=== PATIENT | male | born 1950 | race Caucasian/White ===

== ENCOUNTER 2016-11-18 14:21 | Emergency (ER) | payer MEDICARE ==
--- NOTE | 2016-11-18 16:33 | MRI REPORT ---
HISTORY: Dizziness, evaluate for infarction, right-sided weakness. COMPARISON: None. TECHNIQUE: Multiplanar multi sequential imaging of the brain obtained without IV gadolinium. FINDINGS: There is age appropriate atrophy. There is increased T2 and FLAIR signal in the periventricular white matter, consistent with chronic small vessel ischemic change. There are 2 punctate areas of diminis hed signal on susceptibility and very images in the frontal subcortical white matter on image 20 of s eries 7, one on the right, and one on the left, without associated T2 and FLAIR signal abnormality, c onsistent with chronic hemorrhage, there is no evidence of acute hemorrhage. There is no hydrocephal us. There is no mass lesion. No midline shift is identified. There are subcentimeter areas of ence phalomalacia identified in the right head of the caudate nucleus consistent with remote lacunar type infarctions. No gross bone lesion is identified. The paranasal sinuses are clear. IMPRESSION: Age-appropriate atrophy and chronic small vessel ischemic change. No acute intracranial abnormality, there is no evidence of acute infarction. There are punctate foci of chronic hemorrhage noted in the frontal region bilaterally, question histo ry of hypertension or coagulopathy. Early amyloid angiopathy may have a similar appearance, clinical correlation is advised. There are subcentimeter chronic lacunar type infarctions of the right head of the caudate nucleus. Final Electronic Signature: This report was electronically signed by Carmelo Garcia MD, FACR on 2016 4:31 PM. ramonita /
[2016-11-18 16:39] LABS: BASOPHILS 0.7 % (0.0-2.0); EOSINOPHILS 6.2 % (0.0-6.0); EOSINOPHILS# 0.3 X 10^3uL (0.0-0.4); HEMATOCRIT 45.4 % (42.0-54.0); HEMOGLOBIN 15.9 g/dL (14.0-18.0); LYMPHOCYTES 20.6 % (20.0-40.0); LYMPHOCYTES# 1.1 X 10^3uL (0.8-3.8); MEAN CELL VOLUME 87.2 fL (80.0-100.0); MEAN CORPUSCULAR HEMOGLOBIN 30.5 pg (29.0-35.0); MEAN PLATELET VOLUME 8.8 fL (7.4-10.4); MONOCYTES 8.9 % (2.0-10.0); MONOCYTES# 0.5 X 10^3uL (0.2-1.0); NEUTROPHILS 63.6 % (54.0-75.0); NEUTROPHILS# 3.6 X 10^3uL (2.6-6.7); RED BLOOD COUNT 5.21 X 10^6uL (4.20-6.10); RED CELL DISTRIBUTION WIDTH 12.4 % (11.5-14.5); WHITE BLOOD COUNT 5.5 X 10^3uL (3.9-10.7)
[2016-11-18 16:43] LABS: INR 2.3
[2016-11-18 17:03] LABS: A/G RATIO 1.7; ALBUMIN 4.5 g/dL (3.5-5.0); BILIRUBIN, TOTAL 1.1 mg/dL (0.2-1.3); CALCIUM 9.4 mg/dL (8.4-10.2); CREATININE 1.3 mg/dL (0.7-1.3); POTASSIUM 4.5 mmol/L (3.5-5.1); TOTAL PROTEIN 7.2 g/dL (6.3-8.2)
--- NOTE | 2016-11-18 17:29 | ER NURSING DOCUMENTATION ---
Nurse's Notes [facility] Name:Velasquez Tejeda Age:66 yrs Sex:Male :1950 Arrival Date:11/18/2016 Time:14:21 Bed5 Private MD:Steven Rubio Diagnosis:Dizziness - Vertigo Presentation: 11/18 14:23 Acuity: ALLEN 2 tg 15:19 Presenting complaint: Patient states: Reports light headed feeling while working. lp Transition of care: Home. 15:19 Method Of Arrival: Private Vehicle lp Triage Assessment: 15:47 General: Appears in no apparent distress, Behavior is appropriate for age. Pain: Denies lp pain. Neuro: Level of Consciousness is awake, alert, Oriented to person, place, time, event, Renewal Specialist are equal bilaterally Moves all extremities. Gait is steady, Speech is normal. Cardiovascular: Capillary refill < 3 seconds. Respiratory: Airway is patent Trachea midline Respiratory effort is even, unlabored, Respiratory pattern is regular, symmetrical. GI: Abdomen is flat, non- distended. : No deficits noted. Derm: No deficits noted. Musculoskeletal: No deficits noted. Historical: - Allergies: Morphine; PENICILLINS; Betadine; - Home Meds: 1. Coumadin 5 mg oral tab 5 mg then 7.5 mg alternating days 2. aspirin 81 mg oral tab 1 tab once daily 3. lisinopril 10 mg oral tab 1 tab once daily - PMHx: solitary kidney; - Tetanus: < 10 years. - Ebola Screening: : Patient negative for fever greater than or equal to 101.5 degrees Fahrenheit, and additional compatible Ebola Virus Disease symptoms. Patient denies exposure to infectious person. Patient denies travel to an Ebola-affected area in the 21 days before illness onset. . - Immunization history: Pneumococcal vaccine is up to date, Flu Vaccine None. - Social history: Smoking status: Patient states was never smoker of tobacco. Screenin:51 Infectious Disease Risk None. Abuse screen: Denies threats or abuse. Denies injuries lp from another. Nutritional screening: No deficits noted. Assessment: 15:50 See Triage Assessment done by same RN. lp Vital Signs: 14:15 BP 131 / 70; Pulse 81; Resp 18; Pulse Ox 92% on R/A; Weight 95.25 kg; Height 6 ft. 0 lp in. (182.88 cm); Pain 0/10; 17:27 BP 138 / 72; Pulse 71; Resp 16; Pulse Ox 93% on R/A; Pain 0/10; tg 14:15 Body Mass Index 28.48 (95.25 kg, 182.88 cm) lp ED Course: 14:21 Patient arrived in ED. ds 14:22 Steven Rubio is Private Physician. ds 14:23 Triage completed. tg 14:31 Kourtney Gomes, RN is Primary Nurse. lp 14:[address] Negron notified. lp 15:04 Jim Negron MD is Attending Physician. tl1 15:45 Patient moved to [facility]. tt 15:51 Valuables Remains with patient Patient has correct armband on for positive lp identification. Placed in gown. Bed in low position. Call light in reach. 16:39 Patient moved back from [facility]. ms 16:45 Steven Rubio is Referral Physician. tl1 Administered Medications: 16:00 Drug: NS 0.9% 1000 ml; Route: IV; Rate: bolus; Site: left hand; lp 16:54 Follow up: IV Status: Completed infusion; IV Intake: 1000ml lp Intake: 16:54 IV: 1000ml; Total: 1000ml. lp Outcome: 16:45 Discharge ordered by . tl1 17:27 Discharged to home ambulatory, with family. tg 17:27 Condition: improved 17:27 Discharge Assessment: Patient awake and alert. 17:27 Instructed on discharge instructions, follow up and referral plans. 17:27 IV D/Daquan 17:28 Patient left the ED. tg 0602 09:59 Discharge F/U Call: Unable to reach: left message with person person taking message: st was told that the pt could give us a call if he had any questions or concerns. Signatures: Ismael Bennett RN RN Brook Van RN RN Kourtney Gomes RN RN lp Srot, Karen, Reg Reg ds Eileen Barahona ms, Tracy tt Jim Negron MD MD tl1
--- NOTE | 2016-11-18 17:29 | ER PHYSICIAN DOCUMENTATION ---
Physician Documentation [facility] Name:Velasquez Tejeda Age:66 yrs Sex:Male :1950 Arrival Date:11/18/2016 Time:14:21 Bed5 Private MD:Steven Rubio ED, Tom Disposition: 11/19 11:38 Chart complete. tl1 Disposition: 11/18/16 16:45 Discharged to Home/Self Care. Impression: Dizziness - Vertigo. - Condition is Good. - Discharge Instructions: DIZZINESS, Unk Cause. - Medical Reconciliation form form. - Follow up: Steven Rubio; When: 4- 6 days; Reason: Recheck today's complaints, Continuance of care. - Problem is new. - Symptoms have improved. HPI: 11/18 14:30 This 66 yrs old Male presents to ER via Private Vehicle with complaints of tl1 Dizziness. 14:30 The patient presents with feeling off balance. Onset: The symptom(s)/episode tl1 began/occurred gradually, this morning. Yesterday, he was working up on a hot roof and was sweating heavily. He was fine last night and felt OK this morning initially, but after getting up he noted that he kept listing forward and to the right and had some mild difficulty walking. This was a little worse standing. He denied any spinning sensation, visual changes, speech problems. No tinnitus or acute decrease in his hearing. He feels thirsty and somewhat dehydrated. Denies vomiting , diarrhea, rectal bleeding. No h/o CVA. 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 Historical: - Allergies: Morphine; PENICILLINS; Betadine; - Home Meds: 1. Coumadin 5 mg oral tab 5 mg then 7.5 mg alternating days 2. aspirin 81 mg oral tab 1 tab once daily 3. lisinopril 10 mg oral tab 1 tab once daily - PMHx: solitary kidney; - Tetanus: < 10 years. - Ebola Screening: : Patient negative for fever greater than or equal to 101.5 degrees Fahrenheit, and additional compatible Ebola Virus Disease symptoms. Patient denies exposure to infectious person. Patient denies travel to an Ebola-affected area in the 21 days before illness onset. . - Immunization history: Pneumococcal vaccine is up to date, Flu Vaccine None. - Social history: Smoking status: Patient states was never smoker of tobacco. ROS: 16:00 Neuro: Positive for dizziness, gait disturbance, Negative for headache, hearing loss, tl1 speech changes, near syncope, tinnitus, visual changes, weakness. 16:00 All other systems are negative. Exam: 16:00 Constitutional: This is a well developed, well nourished patient who is awake, alert, tl1 and in no acute distress. Head/Face: Normocephalic, atraumatic. Eyes: Pupils equal round and reactive to light, extra-ocular motions intact. Lids and lashes normal. Conjunctiva and sclera are non-icteric and not injected. Cornea within normal limits. Periorbital areas with no swelling, redness, or edema. ENT: Nares patent. No nasal discharge, no septal abnormalities noted. Tympanic membranes are normal and external auditory canals are clear. Oropharynx with no redness, swelling, or masses, exudates, or evidence of obstruction, uvula midline. Mucous membranes moist. Neck: Trachea midline, no thyromegaly or masses palpated, and no cervical lymphadenopathy. Supple, full range of motion without nuchal rigidity, or vertebral point tenderness. No Meningismus. Chest/axilla: Normal chest wall appearance and motion. Nontender with no deformity. No lesions are appreciated. Cardiovascular: Regular rate and rhythm with a normal S1 and S2. No gallops, murmurs, or rubs. Normal PMI, no JVD. No pulse deficits. Respiratory: Lungs have equal breath sounds bilaterally, clear to auscultation and percussion. No rales, rhonchi or wheezes noted. No increased work of breathing, no retractions or nasal flaring. Abdomen/GI: Soft, non-tender, with normal bowel sounds. No distension or tympany. No guarding or rebound. No evidence of tenderness throughout. Skin: Warm, dry with normal turgor. Normal color with no rashes, no lesions, and no evidence of cellulitis. 16:00 MS/ Extremity: Pulses equal, no cyanosis. Neurovascular intact. Full, normal range tl1 of motion. 16:00 Neuro: Orientation: is normal, Mentation: is normal, Memory: is normal, Cranial nerves: is grossly normal based on the patient's age, Cerebellar function: normal finger to nose testing, Motor: moves all fours, strength is 5/5 in all extremities, Sensation: light touch sense is normal, Gait: is steady, at a normal pace, appropriate for age, Deep tendon reflexes are 2+ (normal) in the bilateral brachioradialis, bicep, tricep and patellar and Achilles tendons. Vital Signs: 14:15 BP 131 / 70; Pulse 81; Resp 18; Pulse Ox 92% on R/A; Weight 95.25 kg; Height 6 ft. 0 lp in. (182.88 cm); Pain 0/10; 17:27 BP 138 / 72; Pulse 71; Resp 16; Pulse Ox 93% on R/A; Pain 0/10; tg 14:15 Body Mass Index 28.48 (95.25 kg, 182.88 cm) lp MDM: 14:44 Patient medically screened. tl1 16:52 ECG:. tl1 17:00 Differential diagnosis: CVA, generalized weakness, GI bleed, hypovolemia, TIA, vertigo. tl1 Data reviewed: vital signs, nurses notes, lab test result(s), CBC, electrolytes, hepatic panel, radiologic studies, MRI. Data reviewed: vital signs, nurses notes, and as a result, I will discharge patient. Data interpreted: ekg monitor: Pulse oximetry:. Test interpretation: by ED physician or midlevel provider: plain radiologic studies. Counseling: I had a detailed discussion with the patient and/or guardian regarding: the historical points, exam findings, and any diagnostic results supporting the discharge/admit diagnosis, lab results, radiology results, the need for outpatient follow up, for a recheck, to return to the emergency department if symptoms worsen or persist or if there are any questions or concerns that arise at home. Special discussion: I told him that it is not really clear what is causing his symptoms. At least part of it is probably due to dehydration as his BUN/Cr ratio was a little on the high side and he felt much better after a 1 liter bolus of NS. His symptoms, though of feeling like he is being pulled, or listing, to the right is not really classic for orthostatic dehydration or any kind of cardiac dysrrhythmia. I am a little concerned for some type of vertigo, but with a normal or at least non-diagnostic MRI, this is probably more likely to be peripheral. I told him if his symptoms resolve and do not recur, this is probably something minor. If the symptoms do recur, he should probably see an otoneurologist.. 11/18 16:40 Order name: CBC AUTO DIF, MDIF/RMOR IF IND; Complete Time: 11:13 EDMS 11/18 16:47 Interpretation: Normal: WHITE BLOOD COUNT 5.5; HEMOGLOBIN 15.9; HEMATOCRIT 45.4; tl1 PLATELET COUNT 154. 11/18 16:47 Order name: PROTIME/INR; Complete Time: 11:13 EDMS 11/19 11:12 Interpretation: Abnormal: PROTIME 28.4; INR 2.3; THERAPEUTIC. tl1 11/18 17:04 Order name: COMPREHENSIVE METABOLIC PANEL; Complete Time: 11:13 EDMS 11/19 11:12 Interpretation: SODIUM 137; POTASSIUM 4.5; CHLORIDE 103; CARBON DIOXIDE 23; GLUCOSE tl1 112; BLOOD UREA NITROGEN 30; CREATININE 1.3. 11/18 16:35 Order name: BRAIN W/O CONTRAST [id number]; Complete Time: 16:49 EDMS 11/18 Interpretation: SEE REPORT. There are some chronic ischemic changes and some evidence tl1 for old punctate hemorrhages, but no apparent acute abnormality. 11/18 15:06 Order name: EKG - 12 Lead; Complete Time: 16:53 tl1 EC:48 Rate is 64 beats/min. Rhythm is regular, Normal Sinus Rhythm with lafb. QRS [place] is tl1 Normal. GA interval is normal. QRS interval is normal. T waves are Normal. Clinical impression: NSR with borderline GA prolongation and LAFB. No acute ischemic changes. Dispensed Medications: 16:00 Drug: NS 0.9% 1000 ml; Route: IV; Rate: bolus; Site: left hand; lp 16:54 Follow up: IV Status: Completed infusion; IV Intake: 1000ml lp Signatures: Ismael Bennett, RN RN tg Kourtney Gomes RN RN Jim Whitaker MD MD tl1
== END 2016-11-18 17:29 | disposition home or self-care (01) ==
LOC: ER 14:21
DX: R42 Dizziness and giddiness (principal); R26.81 Unsteadiness on feet; E86.0 Dehydration; I44.4 Left anterior fascicular block; Z79.01 Long term (current) use of anticoagulants; Z95.2 Presence of prosthetic heart valve; Z79.82 Long term (current) use of aspirin; Z79.899 Other long term (current) drug therapy
CPT/HCPCS: 70551; 80053; 85025; 85610; 93005; 96360; 99284; 99285